=== PATIENT | male | born 1950 | race Caucasian/White ===

== ENCOUNTER 2020-11-27 11:32 | Observation (INO) ==
--- NOTE | 2020-11-27 11:56 | Emergency Department Note ---
Impression & Plan Altered mental status, Confusion, Disorientation ED Provider Note NAME: ROSEMARIE ERICKSON AGE: 70 SEX: M : 1950 ARRIVES VIA: Ambulance INFORMANT: [Patient][ems] ED PROVIDER(S): [Shailesh Seo MD] CHIEF COMPLAINT: Confusion HISTORY OF PRESENT ILLNESS: The patient is a 70-year-old male who was brought to the hospital for altered mental status. He was found slumped over in his car. He was hard to arouse. EMS was able to get him to wake up and brought him to the ED. Blood sugar was in the 200s. The patient is a poor historian. He does not speak [place]ic well and the translation line was used. The patient does not know the year, the month or the day. He is not sure why he is here. He denies any pain. There is no headache. He denies being sick or ill. He denies drug or alcohol use. Given his mental state, no further history obtainable. REVIEW OF SYSTEMS: Unobtainable given his mental state. PMHx/PSHx: See Below SOCIAL HISTORY: See Below. PHYSICAL EXAM: GENERAL: Patient is in no acute distress. HEENT: No acute trauma, normocephalic atraumatic, mucous membranes moist, no nasal congestion, no scleral icterus. Pupils equal and reactive to light. NECK: No stridor, no adenopathy, no meningismus, trachea is midline. LUNGS: Clear to auscultation bilaterally, no wheeze, no rhonchi, breath sounds equal. HEART: Without murmurs gallops or rubs, regular rate and rhythm. ABDOMEN: Soft, nontender, bowel sounds positive, no hernias, no peritonitis. EXTREMITIES: No cyanosis or edema, full range of motion of all the joints without pain or difficulty, no signs for acute trauma. NEUROLOGIC: No speech slur, able to perform simple commands. No one-sided weakness noted. No extremity drift. Confused. SKIN: No rash, no jaundice, no diaphoresis. Groin: No erythema to suggest infection. DIFFERENTIAL DIAGNOSIS: Infection, dehydration, metabolic abnormality, alcohol abuse, drug abuse, liver disease, hypo/hyperglycemia, electrolyte disturbance, anemia, hypoxia, cardiac sources, intracerebral event, toxicologic issues, stroke, TIA, as well as other pathologies. EMERGENCY DEPARTMENT COURSE/PROCEDURES: ECG: Indication was weakness and confusion. The ECG shows a normal sinus rhythm with a rate of 67. There is no ST elevation, no PVCs. The QTc is 403. Continuous Cardiac Monitoring: An order was placed for continuous cardiac monitoring. The monitor shows a rate of 61 with normal sinus rhythm. MEDICAL DECISION MAKING: There is a slight leukopenia. There is a mild anemia. There is a normal platelet count. No significant electrolyte abnormality or kidney failure. Lactic acid level is not elevated making sepsis less likely. No liver enzyme elevation. Ammonia level was not elevated. The patient appeared to be in a euthyroid state. ECG shows a sinus rhythm, no acute ischemia. Cardiac enzyme testing x1 is not consistent with acute cardiac injury. Urinalysis shows some glucose, no infection. Urine tox was negative. Alcohol level was undetectable. Brain CT shows no acute bleed or mass-effect. Chest film shows what appears to be some atelectasis, no CHF. On exam, there were no focal neurologic deficits. The patient was quite disoriented though. The patient was given IV saline, 1 L. The nursing staff was able to contact the patient's . Using the translation line, it appears the patient had left yesterday from [place] to [place]. He apparently was confused at a police station in [place] and given directions to [place]. Somehow, he ended up here in the [facility]. As per his , he has been somewhat forgetful the last few months especially over the last couple of weeks. He has a history of hypertension and hypothyroidism and diabetes. The patient is going to need a hospital stay. At this point, the reason for his altered mental state is unclear. It does appear though that his confusion and disorientation has been escalating for several months. I spoke with case management, the on-call hospitalist was consulted. Past Med/Surg History Medical History Diabetes mellitus Hypertension Social History Smoking Status: Former smoker Feels Safe at Home: Yes Home Meds Home Medications Medication Instructions Recorded Confirmed enalapril maleate 10 mg PO DAILY 11/27/20 11/27/20 levothyroxine 112 mcg PO DAILY 11/27/20 11/27/20 metformin 850 mg PO BID 11/27/20 11/27/20 metoprolol succinate [Toprol XL] 50 mg PO DAILY 11/27/20 11/27/20 Results & Data (ED) Vital Signs Vital Signs - 24 hr 11/27/20 11:36 11/27/20 11:37 11/27/20 11:46 Temperature 36.9 C Temperature Source Oral Pulse Rate 71 71 66 Pulse Rate from SpO2 Sensor 65 Pulse Rhythm Regular Pulse Strength Normal Respiratory Rate 18 26 H 20 Respiratory Effort / Characteristics Non-Labored Respiratory Depth Normal Respiratory Pattern Regular Blood Pressure 127/67 127/67 Blood Pressure Mean 87 87 Blood Pressure Position Sitting Pulse Oximetry 99 99 Oxygen Delivery Method Room Air Sepsis Recent Fever Within 48 Hours No Sepsis New/Unexplained Change in Mental Status No Sepsis Action Taken by Nursing No Action Required 11/27/20 11:50 11/27/20 12:00 11/27/20 12:01 Temperature Temperature Source Pulse Rate 69 64 63 Pulse Rate from SpO2 Sensor 68 64 63 Pulse Rhythm Pulse Strength Respiratory Rate 20 14 16 Respiratory Effort / Characteristics Respiratory Depth Respiratory Pattern Blood Pressure 122/64 Blood Pressure Mean 83 Blood Pressure Position Pulse Oximetry 93 94 93 Oxygen Delivery Method Sepsis Recent Fever Within 48 Hours Sepsis New/Unexplained Change in Mental Status Sepsis Action Taken by Nursing 11/27/20 12:10 11/27/20 12:19 11/27/20 12:20 Temperature Temperature Source Pulse Rate 69 73 59 L Pulse Rate from SpO2 Sensor 69 60 Pulse Rhythm Regular Pulse Strength Respiratory Rate 22 18 17 Respiratory Effort / Characteristics Respiratory Depth Respiratory Pattern Blood Pressure Blood Pressure Mean Blood Pressure Position Pulse Oximetry 95 93 98 Oxygen Delivery Method Room Air Sepsis Recent Fever Within 48 Hours Sepsis New/Unexplained Change in Mental Status Sepsis Action Taken by Nursing 11/27/20 12:30 11/27/20 12:31 Temperature Temperature Source Pulse Rate 63 59 L Pulse Rate from SpO2 Sensor 59 L 57 L Pulse Rhythm Pulse Strength Respiratory Rate 20 16 Respiratory Effort / Characteristics Respiratory Depth Respiratory Pattern Blood Pressure 123/63 Blood Pressure Mean 83 Blood Pressure Position Pulse Oximetry 97 97 Oxygen Delivery Method Sepsis Recent Fever Within 48 Hours Sepsis New/Unexplained Change in Mental Status Sepsis Action Taken by [facility] Medications Current Medication List: was personally reviewed by me Laboratory Data Attestation: I reviewed the patient's lab results. Result diagrams: 11/27/20 12:00 11/27/20 12:00 Lab Results 11/27/20 11/27/20 11/27/20 Range/Units 12:00 12:00 12:00 WBC 4.15 L (4.8-10.8) K/uL RBC 3.99 L (4.7-6.1) M/uL Hgb 12.4 L (14.0-18.0) g/dL Hct 36.3 L (42-52) % MCV 91.0 (80-100) fL MCH 31.1 (25-34) pg MCHC 34.2 (32-36) g/dL RDW Std Deviation 44.0 (36.4-46.3) fL RDW Coeff of Marcella 13.1 (11.5-14.5) % Plt Count 134 (130-400) K/uL MPV 9.1 (7.4-10.4) fL Immature Gran % (Auto) 0.2 % Neut % (Auto) 56.0 % Lymph % (Auto) 26.5 % Trinity % (Auto) 17.1 % Eos % (Auto) 0.0 % Baso % (Auto) 0.2 % Neut # (Auto) 2.32 (1.4-6.5) K/uL Lymph # (Auto) 1.10 L (1.2-3.4) K/uL Trinity # (Auto) 0.71 H (0.11-0.59) K/uL Eos # (Auto) 0.00 (0-0.5) K/uL Baso # (Auto) 0.01 (0-0.2) K/uL Immature Gran # (Auto) 0.01 (0.00-0.02) K/uL Sodium 137 (136-145) mmol/L Potassium 4.3 (3.5-5.1) mmol/L Chloride 104 (98-107) mmol/L Carbon Dioxide 27 (21-32) mmol/L Anion Gap 6.0 (3-11) BUN 13 (7-18) mg/dl Creatinine 0.84 (0.6-1.4) mg/dl Est Cr Clr Drug Dosing 80.3 ml/min Est GFR ( Amer) 103.5 ml/min Est GFR (Non-Af Amer) 89.3 ml/min BUN/Creatinine Ratio 15.8 (10-20) Glucose 193 H (70-99) mg/dl POC Glucose (70-99) mg/dl Lactate (0.4-2.0) mmol/L Calcium 8.2 L (8.5-10.1) mg/dl Magnesium 2.1 (1.8-2.4) mg/dl Total Bilirubin 0.4 (0.2-1) mg/dl AST 27 (15-37) U/L ALT 30 (12-78) U/L Alkaline Phosphatase 58 (45-117) U/L Ammonia 12.0 (11-32) umol/L Troponin I < 0.015 (0-0.045) ng/ml Total Protein 7.3 (6.4-8.2) gm/dl Albumin 3.6 (3.4-5.0) gm/dl Globulin 3.7 (2.5-4.0) gm/dl Albumin/Globulin Ratio 1.0 (0.9-2) TSH 0.742 (0.300-4.500) uIu/ml Urine Color Urine Appearance (Clear) Urine pH (4.5-7.5) Ur Specific [place] (1.000-1.030) Urine Protein (Negative) Urine Glucose (UA) (Negative) Urine Ketones (Negative) Urine Blood (Negative) Urine Nitrite (Negative) Urine Bilirubin (Negative) Urine Urobilinogen (Negative) Ur Leukocyte Esterase (Negative) Urine WBC (Auto) (0-5) /hpf Urine RBC (Auto) (0-4) /hpf U Hyaline Cast (Auto) (0-5) /lpf U Epithel Cells (Auto) (0-5) /lpf Urine Bacteria (Auto) (Negative) Urine Opiates Screen (Neg) Ur Methadone, Qual (Neg) Urine Barbiturates (Neg) Ur Phencyclidine (PCP) (Neg) U Amphetamin/Meth Scrn (Neg) MDMA (Ecstasy) Screen (Neg) U Benzodiazepines Scrn (Neg) Ur Cocaine Metabolite (Neg) U Marijuana (THC) Screen (Neg) Ethyl Alcohol mg/dL (0-3) mg/dl 11/27/20 11/27/20 11/27/20 Range/Units 12:00 12:01 12:01 WBC (4.8-10.8) K/uL RBC (4.7-6.1) M/uL Hgb (14.0-18.0) g/dL Hct (42-52) % MCV (80-100) fL MCH (25-34) pg MCHC (32-36) g/dL RDW Std Deviation (36.4-46.3) fL RDW Coeff of Marcella (11.5-14.5) % Plt Count (130-400) K/uL MPV (7.4-10.4) fL Immature Gran % (Auto) % Neut % (Auto) % Lymph % (Auto) % Trinity % (Auto) % Eos % (Auto) % Baso % (Auto) % Neut # (Auto) (1.4-6.5) K/uL Lymph # (Auto) (1.2-3.4) K/uL Trinity # (Auto) (0.11-0.59) K/uL Eos # (Auto) (0-0.5) K/uL Baso # (Auto) (0-0.2) K/uL Immature Gran # (Auto) (0.00-0.02) K/uL Sodium (136-145) mmol/L Potassium (3.5-5.1) mmol/L Chloride (98-107) mmol/L Carbon Dioxide (21-32) mmol/L Anion Gap (3-11) BUN (7-18) mg/dl Creatinine (0.6-1.4) mg/dl Est Cr Clr Drug Dosing ml/min Est GFR ( Amer) ml/min Est GFR (Non-Af Amer) ml/min BUN/Creatinine Ratio (10-20) Glucose (70-99) mg/dl POC Glucose 195 H (70-99) mg/dl Lactate 1.3 (0.4-2.0) mmol/L Calcium (8.5-10.1) mg/dl Magnesium (1.8-2.4) mg/dl Total Bilirubin (0.2-1) mg/dl AST (15-37) U/L ALT (12-78) U/L Alkaline Phosphatase (45-117) U/L Ammonia (11-32) umol/L Troponin I (0-0.045) ng/ml Total Protein (6.4-8.2) gm/dl Albumin (3.4-5.0) gm/dl Globulin (2.5-4.0) gm/dl Albumin/Globulin Ratio (0.9-2) TSH (0.300-4.500) uIu/ml Urine Color Urine Appearance (Clear) Urine pH (4.5-7.5) Ur Specific [place] (1.000-1.030) Urine Protein (Negative) Urine Glucose (UA) (Negative) Urine Ketones (Negative) Urine Blood (Negative) Urine Nitrite (Negative) Urine Bilirubin (Negative) Urine Urobilinogen (Negative) Ur Leukocyte Esterase (Negative) Urine WBC (Auto) (0-5) /hpf Urine RBC (Auto) (0-4) /hpf U Hyaline Cast (Auto) (0-5) /lpf U Epithel Cells (Auto) (0-5) /lpf Urine Bacteria (Auto) (Negative) Urine Opiates Screen (Neg) Ur Methadone, Qual (Neg) Urine Barbiturates (Neg) Ur Phencyclidine (PCP) (Neg) U Amphetamin/Meth Scrn (Neg) MDMA (Ecstasy) Screen (Neg) U Benzodiazepines Scrn (Neg) Ur Cocaine Metabolite (Neg) U Marijuana (THC) Screen (Neg) Ethyl Alcohol mg/dL < 3.0 (0-3) mg/dl 11/27/20 11/27/20 Range/Units 12:08 12:08 WBC (4.8-10.8) K/uL RBC (4.7-6.1) M/uL Hgb (14.0-18.0) g/dL Hct (42-52) % MCV (80-100) fL MCH (25-34) pg MCHC (32-36) g/dL RDW Std Deviation (36.4-46.3) fL RDW Coeff of Marcella (11.5-14.5) % Plt Count (130-400) K/uL MPV (7.4-10.4) fL Immature Gran % (Auto) % Neut % (Auto) % Lymph % (Auto) % Trinity % (Auto) % Eos % (Auto) % Baso % (Auto) % Neut # (Auto) (1.4-6.5) K/uL Lymph # (Auto) (1.2-3.4) K/uL Trinity # (Auto) (0.11-0.59) K/uL Eos # (Auto) (0-0.5) K/uL Baso # (Auto) (0-0.2) K/uL Immature Gran # (Auto) (0.00-0.02) K/uL Sodium (136-145) mmol/L Potassium (3.5-5.1) mmol/L Chloride (98-107) mmol/L Carbon Dioxide (21-32) mmol/L Anion Gap (3-11) BUN (7-18) mg/dl Creatinine (0.6-1.4) mg/dl Est Cr Clr Drug Dosing ml/min Est GFR ( Amer) ml/min Est GFR (Non-Af Amer) ml/min BUN/Creatinine Ratio (10-20) Glucose (70-99) mg/dl POC Glucose (70-99) mg/dl Lactate (0.4-2.0) mmol/L Calcium (8.5-10.1) mg/dl Magnesium (1.8-2.4) mg/dl Total Bilirubin (0.2-1) mg/dl AST (15-37) U/L ALT (12-78) U/L Alkaline Phosphatase (45-117) U/L Ammonia (11-32) umol/L Troponin I (0-0.045) ng/ml Total Protein (6.4-8.2) gm/dl Albumin (3.4-5.0) gm/dl Globulin (2.5-4.0) gm/dl Albumin/Globulin Ratio (0.9-2) TSH (0.300-4.500) uIu/ml Urine Color Yellow Urine Appearance Clear (Clear) Urine pH 6.0 (4.5-7.5) Ur Specific [place] 1.019 (1.000-1.030) Urine Protein Trace H (Negative) Urine Glucose (UA) 2+ H (Negative) Urine Ketones 1+ H (Negative) Urine Blood Negative (Negative) Urine Nitrite Negative (Negative) Urine Bilirubin Negative (Negative) Urine Urobilinogen Negative (Negative) Ur Leukocyte Esterase Negative (Negative) Urine WBC (Auto) 1-5 (0-5) /hpf Urine RBC (Auto) 0-4 (0-4) /hpf U Hyaline Cast (Auto) 1-5 (0-5) /lpf U Epithel Cells (Auto) 10-20 H (0-5) /lpf Urine Bacteria (Auto) Negative (Negative) Urine Opiates Screen Neg (Neg) Ur Methadone, Qual Neg (Neg) Urine Barbiturates Neg (Neg) Ur Phencyclidine (PCP) Neg (Neg) U Amphetamin/Meth Scrn Neg (Neg) MDMA (Ecstasy) Screen Neg (Neg) U Benzodiazepines Scrn Neg (Neg) Ur Cocaine Metabolite Neg (Neg) U Marijuana (THC) Screen Neg (Neg) Ethyl Alcohol mg/dL (0-3) mg/dl Administered Medications Discontinued Medications Sodium Chloride (Nss 1000ml) 1,000 mls @ 999 mls/hr IV .[id number] Stop: 11/27/20 13:00 Last Admin: 11/27/20 12:20 Dose: 999 mls/hr Documented by: [id number] Imaging Data Radiologist's Impression: Chest X-Ray 11/27/20 11:51 XR chest 1V portable HISTORY: 70 years-old Male weakness . Acute weakness COMPARISON: None TECHNIQUE: Portable AP view of the chest FINDINGS: Cardiac silhouette is upper limits of normal in size. No pneumothorax, pleural effusion or overt pulmonary edema. Ill-defined opacities of the lung bases. Degenerative changes of the shoulders and spine. IMPRESSION: Ill-defined opacities of the lung bases are likely secondary to atelectasis/summation density. A mild pneumonitis is considered less likely. ACT 112: Negative or not required by law. The above report was generated using voice recognition software. It may contain grammatical, syntax or spelling errors. Electronically signed by: Edwin Morrison M.D. 11/27/2020 12:[address] 11/27/20 11:51 CT head/brain wo con CLINICAL HISTORY: 70 years-old Male with confusion. Acutely altered mental status with confusion TECHNIQUE: Multiple axial CT images of the head were obtained without contrast. A dose lowering technique was utilized adhering to the principles of ALARA. CT DOSE: 614.27 mGy.cm COMPARISON: None. FINDINGS: No acute intracranial hemorrhage, midline shift, intracranial mass, hydrocephalus, territorial ischemia or abnormal extra-axial collection. Mildly motion degraded exam. The calvarium is intact. Prior left-sided lens repair. The paranasal sinuses, mastoid air cells, and middle ear cavities are clear. IMPRESSION: No acute intracranial abnormality. ACT 112: Negative or not required by law. The above report was generated using voice recognition software. It may contain grammatical, syntax or spelling errors. Electronically signed by: Edwin Morrison M.D. 11/27/2020 1:15 PM Discharge Plan Visit Data Chief Complaint: Altered Mental Status ED Provider: Shailesh Seo Discharge Problem: Altered mental status, Confusion, Disorientation Patient Disposition: Admitted As Inpatient Condition: Fair Forms [facility] Prescriptions Prescriptions: No Action enalapril maleate 10 mg Tablet 10 mg PO DAILY RF: 0 metoprolol succinate [Toprol XL] 50 mg Tablet Extended Release 24 Hr 50 mg PO DAILY RF: 0 metformin 850 mg Tablet 850 mg PO BID RF: 0 levothyroxine 112 mcg Tablet 112 mcg PO DAILY RF: 0 Referrals Referrals: PCP,NO [Primary Care Provider] - Discharge Problem: Altered mental status Qualifiers: Altered mental status type: disorientation Qualified Code(s): R41.0 - Disorientation, unspecified
[2020-11-27] MEDS ORDERED: SODIUM CHLORIDE 0.9% 1,000 ML IV SCH ×2 (12:00→19:31)
[2020-11-27 12:12] LABS: Basophils # (auto) 0.01 K/uL (0-0.2); Basophils % (auto) 0.2 %; Hematocrit (blood only) 36.3 % (42-52); Hemoglobin 12.4 g/dL (14.0-18.0); Immature Granulocytes # (auto) 0.01 K/uL (0.00-0.02); Immature Granulocytes % (auto) 0.2 %; Lymphocytes % (auto) 26.5 %; Mean Corpuscular Hemoglobin 31.1 pg (25-34); Mean Corpuscular Hgb Conc 34.2 g/dL (32-36); Mean Platelet Volume 9.1 fL (7.4-10.4); Monocytes # (auto) 0.71 K/uL (0.11-0.59); Monocytes % (auto) 17.1 %; Neutrophils # (auto) 2.32 K/uL (1.4-6.5); Platelet Count 134 K/uL (130-400); RDW Coefficient of Variation 13.1 % (11.5-14.5); Red Blood Count 3.99 M/uL (4.7-6.1); White Blood Count 4.15 K/uL (4.8-10.8)
--- NOTE | 2020-11-27 12:24 | XRay Report ---
XR chest 1V portable HISTORY: 70 years-old Male weakness . Acute weakness COMPARISON: None TECHNIQUE: Portable AP view of the chest FINDINGS: Cardiac silhouette is upper limits of normal in size. No pneumothorax, pleural effusion or overt pulm onary edema. Ill-defined opacities of the lung bases. Degenerative changes of the shoulders and spine . IMPRESSION: Ill-defined opacities of the lung bases are likely secondary to atelectasis/summation den sity. A mild pneumonitis is considered less likely. ACT 112: Negative or not required by law. The above report was generated using voice recognition software. It may contain grammatical, syntax o r spelling errors. Electronically signed by: Edwin Morrison M.D. 11/27/2020 12:22 PM
[2020-11-27 12:30] LABS: Alanine Aminotransferase 30 U/L (12-78); Albumin Level 3.6 gm/dl (3.4-5.0); Aspartate Aminotransferase 27 U/L (15-37); BUN Creatinine Ratio 15.8 (10-20); Blood Urea Nitrogen 13 mg/dl (7-18); Calcium 8.2 mg/dl (8.5-10.1); Carbon Dioxide 27 mmol/L (21-32); Chloride 104 mmol/L (98-107); Creatinine Clr Calc Pharmacy 80.3 ml/min; Est GFR (African American) 103.5 ml/min; Est GFR (Non-African American) 89.3 ml/min; Glucose 193 mg/dl (70-99); Magnesium 2.1 mg/dl (1.8-2.4); Potassium 4.3 mmol/L (3.5-5.1); Sodium 137 mmol/L (136-145)
[2020-11-27 12:32] LABS: Appearance Urine Clear (Clear); Bacteria Urine Automated Negative (Negative); Bilirubin Urine Negative (Negative); Blood Urine Negative (Negative); Color Urine Yellow; Glucose Urine UA 2+ (Negative); Ketones Urine 1+ (Negative); Leukocyte Esterase Urine Negative (Negative); Nitrite Urine Negative (Negative); Protein Urine Trace (Negative); RBC Urine Automated 0-4 /hpf (0-4); Specific Gravity Urine 1.019 (1.000-1.030); Urobilinogen Urine Negative (Negative)
[2020-11-27 12:41] LABS: Alkaline Phosphatase 58 U/L (45-117); Bilirubin,Total 0.4 mg/dl (0.2-1); Globulin 3.7 gm/dl (2.5-4.0); Thyroid Stimulating Hormone 0.742 uIu/ml (0.300-4.500); Total Protein 7.3 gm/dl (6.4-8.2); Troponin I < 0.015 ng/ml (0-0.045)
[2020-11-27 12:54] LABS: Amphetamines+Metham, Urine Neg (Neg); Barbiturates, Urine Neg (Neg); Benzodiazepine, Urine Neg (Neg); Cocaine, Urine Neg (Neg); MDMA (Ecstacy), Urine Neg (Neg); Methadone, Urine Neg (Neg); Opiate, Urine Neg (Neg); Phencyclidine, Urine Neg (Neg)
--- NOTE | 2020-11-27 13:16 | CT Scan Report ---
CT head/brain wo con CLINICAL HISTORY: 70 years-old Male with confusion. Acutely altered mental status with confusion TECHNIQUE: Multiple axial CT images of the head were obtained without contrast. A dose lowering tech nique was utilized adhering to the principles of ALARA. CT DOSE: 614.27 mGy.cm COMPARISON: None. FINDINGS: No acute intracranial hemorrhage, midline shift, intracranial mass, hydrocephalus, territorial ischem ia or abnormal extra-axial collection. Mildly motion degraded exam. The calvarium is intact. Prior left-sided lens repair. The paranasal sinuses, mastoid air cells, and middle ear cavities are clear. IMPRESSION: No acute intracranial abnormality. ACT 112: Negative or not required by law. The above report was generated using voice recognition software. It may contain grammatical, syntax o r spelling errors. Electronically signed by: Edwin Morrison M.D. 11/27/2020 1:15 PM
--- NOTE | 2020-11-27 15:14 | History & Physical Report ---
Date of Service November 27, 2020 Assessment & Plan (1) Altered mental status: Patient presents with encephalopathy of undetermined origin. Currently does not appear to have any infectious etiologies we can tell. Distal urine tox screen for typical drugs are negative. Patient does have mild elevation of his blood glucose but no evidence of acidemia. He denies any focal complaints or problems. Patient will be kept for safety he'll be hydrated clear family will arrive to further clear up this problem His of his risk factors of diabetes hypertension and his age patient will proceed with an MRI scan of his head to look for ischemic changes. He started on aspirin 81 mg at this time lipid panel be gained in the morning Will be given 500 thiamine in ER and checked started on 100 mg thiamine daily thiamine level be sent, family gave ER nursing history of decline over last few weeks Incidental Covid test + in er ? covid encephalopathy (2) COVID-19: Patient is found to have incidental COVID-19 positive testing in the emergency department. He is not hypoxic he does not have any chest infiltrates he denies having any diarrhea or changes in taste or smell. He is on Covid airborne isolation is at this point in time we will continue to follow his vital signs (3) Hypertension: This comes with a history from his currently is normotensive Reportedly medications include enalapril and metoprolol these will be continued (4) Hypothyroidism: Patient will continue on Synthroid on 112 mcg, TSH was checked and found to be within normal limits (5) Diabetes mellitus: Patient reported his diabetes he is on Metformin this will be held sliding scale insulin will be employed A1c will be checked in the morning is on a carbohydrate conservative diet (6) DVT prophylaxis: Lovenox abuse for DVT prevention History of Present Illness Primary Care Provider: NO PCP 70-year-old Turkish-speaking male who arrives to us in an altered state. According to the emergency room doctor who spoke to the via the manager database administration this patient went from [facility] to [place] to visit family and reportedly did arrive in [place] to visit family on 25 November. Apparently on 26 November today the patient's family received a phone call from the police station in [place] that the patient was trying to get directions to return home to [place]. Reportedly with directions were rendered and the patient was sent on his way. Patient was then found in an altered state [facility] was transported to the hospital by EMS. His pockets contained a pill bottle which looks to contain brown sugar and patient corroborates this is brown sugar there is also 1 packet of Splenda in it. The patient appears slightly sedate and bewildered he can answer questions through the manager database administration he denies drug and alcohol use. Cannot corroborate any medication use at this time and reportedly after the physician was done speaking to the patient the nurse contacted the and reportedly the family is trying to coordinate a way to travel to [facility] to eventually extricate this patient back to [place] Patient's examination is unrevealing does have smaller pupils than I would expect but they do react is no signs of needle tracks is closer slightly dirty but it is undetermined if that was from transporting him in his physical examination is unrevealing. CT scan of the head is unremarkable chest x-ray has some nondescript changes at the bases which could be atelectasis he has no pneumonia symptoms at this time EKG is normal sinus rhythm no acute ST or T wave changes, urine tox screen is negative, urinalysis is with protein glucose and ketones but negative nitrates leukocyte esterase or bacteria. Glucose is slightly elevated at 193 This point time the patient is unfit to be released under his own accord kept in our facility additional monitoring will be undertaken hopefully his family will arrive Home Medications Medication Instructions Recorded Confirmed Type enalapril maleate 10 mg PO DAILY 11/27/20 11/27/20 History levothyroxine 112 mcg PO DAILY 11/27/20 11/27/20 History metformin 850 mg PO BID 11/27/20 11/27/20 History metoprolol succinate [Toprol XL] 50 mg PO DAILY 11/27/20 11/27/20 History Past Med/Surg History Medical History (Updated 11/27/20 @ 16:10 by Kishan King MD) Diabetes mellitus Hypertension Social History Smoking Status: Former smoker Feels Safe at Home: Yes Review of Systems Review of Systems: This is obtained through manager database administration service mild distress and fatigue no headache, blurry or double vision no speech or swallowing issues no chest pain, pressure or palpitations no shortness of breath, cough or wheezes no abdominal pain, nausea or vomiting, diarrhea or constipation no dysuria, hematuria or frequency no focal joint pain or swelling no back pain, CVA tenderness or radicular pain no bruising, bleeding or rashes no focal signs of weakness or numbness no complaints of anxiety or depression.. Physical Exam Physical Exam: The patient appeared well nourished and normally developed. Vital signs as documented. Head exam is normocephalic atraumatic Oropharynx is clear without erythema Neck is without JVD, thyromegaly, or carotid bruits. Lungs are clear to auscultation, no focal loss of breath sounds Cardiac exam, Rhythm is regular.. No murmurs, rubs or gallops. Abdominal exam reveals normal bowel sounds, soft non tender, no masses Extremities are nonedematous and both pedal pulses are present Neurologic exam is alert and seems sleepy but answers questions Skin is without bruises or rashes Results & Data Results & Data ([facility]) Vital Signs (Past 12 Hours) Vital Signs Temp Pulse Resp BP Pulse Ox 11/27/20 12:31 59 L 16 97 11/27/20 12:30 63 20 123/63 97 11/27/20 12:20 59 L 17 98 11/27/20 12:19 73 18 93 11/27/20 12:10 69 22 95 11/27/20 12:01 63 16 93 11/27/20 12:00 64 14 122/64 94 11/27/20 11:50 69 20 93 11/27/20 11:46 66 20 99 11/27/20 11:37 98.4 F 71 26 H 127/67 99 11/27/20 11:36 71 18 127/67 Chest X-Ray 11/27/20 11:51 XR chest 1V portable HISTORY: 70 years-old Male weakness . Acute weakness COMPARISON: None TECHNIQUE: Portable AP view of the chest FINDINGS: Cardiac silhouette is upper limits of normal in size. No pneumothorax, pleural effusion or overt pulmonary edema. Ill-defined opacities of the lung bases. Degenerative changes of the shoulders and spine. IMPRESSION: Ill-defined opacities of the lung bases are likely secondary to atelectasis/summation density. A mild pneumonitis is considered less likely. ACT 112: Negative or not required by law. The above report was generated using voice recognition software. It may contain grammatical, syntax or spelling errors. Electronically signed by: Edwin Morrison M.D. 11/27/2020 12:[address] 11/27/20 11:51 CT head/brain wo con CLINICAL HISTORY: 70 years-old Male with confusion. Acutely altered mental status with confusion TECHNIQUE: Multiple axial CT images of the head were obtained without contrast. A dose lowering technique was utilized adhering to the principles of ALARA. CT DOSE: 614.27 mGy.cm COMPARISON: None. FINDINGS: No acute intracranial hemorrhage, midline shift, intracranial mass, hydrocephalus, territorial ischemia or abnormal extra-axial collection. Mildly motion degraded exam. The calvarium is intact. Prior left-sided lens repair. The paranasal sinuses, mastoid air cells, and middle ear cavities are clear. IMPRESSION: No acute intracranial abnormality. ACT 112: Negative or not required by law. The above report was generated using voice recognition software. It may contain grammatical, syntax or spelling errors. Electronically signed by: Edwin Morrison M.D. 11/27/2020 1:15 PM EKG shows normal sinus rhythm without ST or T wave changes PG Care Time/CCT Total # of Minutes Spent Total Time Spent with Patient: Total time spent is greater than 50% in coordination of care (as documented) at patient's floor/unit and/or counseling patient: Coding Level of Care Code 92169 Initial Inpt Care Lvl 3 Diagnoses Altered mental status R41.0 Altered mental status type: disorientation COVID-19 U07.1 Hypertension I10 Hypothyroidism E03.9 Diabetes mellitus E11.9 DVT prophylaxis Z29.9 (1) Altered mental status Altered mental status type: disorientation Qualified Code(s): R41.0 - Disorientation, unspecified
[2020-11-27] MEDS ORDERED: GLUCOSE 10 TAB/TUBE PO PRN (19:31)
[2020-11-27] MEDS ORDERED: CARBOHYDRATES FOR HYPOGLYCEMIA PO PRN (19:31)
[2020-11-27] MEDS ORDERED: GLUCOSE 40% GEL 15 GM TUBE PO PRN (19:31)
[2020-11-27] MEDS ORDERED: DEXTROSE 50% 50 ML SYRINGE IV PRN (19:31)
[2020-11-27] MEDS ORDERED: POLYETHYLENE (MIRALAX) 17 GM PACK PO PRN (19:31)
[2020-11-27] MEDS ORDERED: LORazepam 0.5 MG/1 ML VIAL IV PRN (19:31)
[2020-11-27] MEDS ORDERED: ALUMINUM/MAGNESIUM SUSP 30 ML UDC PO PRN (19:31)
[2020-11-27] MEDS ORDERED: ONDANSETRON INJ 2 MG/ML 2 ML VIAL IV PRN (19:31)
[2020-11-27] MEDS ORDERED: GLUCAGON FOR INJ 1 MG VIAL SQ PRN (19:31)
[2020-11-27] MEDS ORDERED: ACETAMINOPHEN 325 MG TAB PO PRN (19:31)
[2020-11-27] MEDS ORDERED: THIAMINE HCL 500 MG in SODIUM CHLORIDE 0.9% 50 ML IV ONE (20:00)
[2020-11-27 20:16] LABS: Chol HDL Ratio 4; Cholesterol 142 mg/dl (0-200); HDL Cholesterol 38 mg/dl; LDL Cholesterol Calculated 87 mg/dl; Triglycerides 85 mg/dl (0-150); VLDL Cholesterol 17 mg/dl
[2020-11-27] MEDS ORDERED: ENOXAPARIN INJ 40 MG/0.4 ML SYR SQ SCH (21:00)
[2020-11-27] MEDS: INSULIN ASPART 100 UNITS/ML 3 ML PEN SC SCH (22:40)
--- NOTE | 2020-11-28 06:20 | Electrocardiogram Report ---
Test Reason : Blood Pressure : / mmHG Vent. Rate : 067 BPM Atrial Rate : 067 BPM P-R Int : 142 ms QRS Dur : 082 ms QT Int : 382 ms P-R-T Axes : 055 -03 033 degrees QTc Int : 403 ms Normal sinus rhythm Normal ECG No previous ECGs available Confirmed by Mauri Mcdonough ([id number]) on 11/28/2020 6:20:31 AM Referred By: REFERRED SELF Confirmed By:Mauri Mcdonough
[2020-11-28] MEDS ORDERED: LEVOTHYROXINE SODIUM 112 MCG TABLET PO SCH (06:30)
[2020-11-28 06:47] LABS: Calcium 7.6 mg/dl (8.5-10.1); Creatinine Clr Calc Pharmacy 90.6 ml/min; Est GFR (Non-African American) 95.7 ml/min; Potassium 4.1 mmol/L (3.5-5.1)
--- NOTE | 2020-11-28 07:50 | Hospitalist Progress Note ---
Date of Service November 28, 2020 Assessment & Plan (1) Altered mental status: Patient presents with encephalopathy of undetermined origin. He has + covid testing but not pneumonia or colitis and does not appear to have any other infectious etiologies we can tell. typical urine tox screen for typical drugs are negative. Patient is diabetic and does have mild elevation of his blood glucose but no evidence of acidemia. He denies any focal complaints or problems. Patient will be kept for safety until his family will arrive to return him to his home town and arrange medical follow up Wasbe given 500 thiamine in ER and checked started on 100 mg thiamine daily there does not seem to be a discernable affect on his performance Incidental Covid test + in er ? covid encephalopathy His family, Rima, speaks Telugu and she feels that her father was just overly tired and that typically he speaks low slow and mumbles, she feels that she has spoken to him and he is near his baseline (2) COVID-19: Patient is found to have incidental COVID-19 positive testing in the emergency department. He is not hypoxic he does not have any chest infiltrates he denies having any diarrhea or changes in taste or smell. He is on Covid airborne isolation is at this point in time we will continue to follow home isolation after his stay (3) Hypertension: This comes with a history from his currently is normotensive Reportedly medications include enalapril and metoprolol (4) Hypothyroidism: Patient will continue on Synthroid on 112 mcg, TSH was checked and found to be within normal limits (5) Diabetes mellitus: Patient reported his diabetes he is on Metformin this will be resumed on discharge (6) DVT prophylaxis: Lovenox was used for DVT prevention Admission and Anticipated Discharge Date Admission Date: November 27, 2020 Subjective This pt appears more awake and alert today, he denies issues and does speak some Telugu states he is hungry has no pain and feels good Review of Systems Review of Systems: This is obtained through fitness professional service mild distress and fatigue no headache, blurry or double vision no speech or swallowing issues no chest pain, pressure or palpitations no shortness of breath, cough or wheezes no abdominal pain, nausea or vomiting, diarrhea or constipation no dysuria, hematuria or frequency no focal joint pain or swelling no back pain, CVA tenderness or radicular pain no bruising, bleeding or rashes no focal signs of weakness or numbness no complaints of anxiety or depression.. Physical Exam Physical Exam: The patient appeared well nourished and normally developed. Vital signs as documented. Head exam is normocephalic atraumatic Oropharynx is clear without erythema Neck is without JVD, thyromegaly, or carotid bruits. Lungs are clear to auscultation, no focal loss of breath sounds Cardiac exam, Rhythm is regular.. No murmurs, rubs or gallops. Abdominal exam reveals normal bowel sounds, soft non tender, no masses Extremities are nonedematous and both pedal pulses are present Neurologic exam is alert and seems sleepy but answers questions Skin is without bruises or rashes Results & Data Results & Data ([facility]) Vital Signs (Past 12 Hours) Vital Signs Temp Pulse Pulse Resp BP Pulse Ox 11/28/20 07:37 99.9 F H 70 16 125/62 100 11/28/20 04:09 99.3 F 63 20 123/66 99 11/28/20 00:10 98.4 F 62 18 125/69 100 11/27/20 22:40 73 PG Care Time/CCT Total # of Minutes Spent Total Time Spent with Patient: Total time spent is greater than 50% in coordination of care (as documented) at patient's floor/unit and/or counseling patient: Coding Level of Care Code 11988 Subseq Hosp Care Lvl 3 Diagnoses Altered mental status R41.0 Altered mental status type: disorientation COVID-19 U07.1 Hypertension I10 Hypothyroidism E03.9 Diabetes mellitus E11.9 DVT prophylaxis Z29.9 (1) Altered mental status Altered mental status type: disorientation Qualified Code(s): R41.0 - Disorientation, unspecified
[2020-11-28] MEDS: INSULIN ASPART 100 UNITS/ML 3 ML PEN SC SCH ×3 (08:10→16:45)
[2020-11-28] MEDS ORDERED: ENALAPRIL MALEATE 10 MG TAB PO SCH (09:00)
[2020-11-28] MEDS ORDERED: THIAMINE HCL 100 MG TAB PO SCH (09:00)
[2020-11-28] MEDS ORDERED: ASPIRIN 81 MG ECTAB PO SCH (09:00)
[2020-11-28] MEDS ORDERED: METOPROLOL SUCC 50MG EXT REL TAB PO SCH (09:00)
--- NOTE | 2020-11-28 14:05 | Discharge Summary ---
Date of Service November 28, 2020 Admission HPI Per Admitting Provider 70-year-old Fijian-speaking male who arrives to us in an altered state. According to the emergency room doctor who spoke to the via the flask maker this patient went from [facility] to [place] to visit family and reportedly did arrive in [place] to visit family on 25 November. Apparently on 26 November today the patient's family received a phone call from the police station in [place] that the patient was trying to get directions to return home to [place]. Reportedly with directions were rendered and the patient was sent on his way. Patient was then found in an altered state downtown [facility] transported to the hospital by EMS. His pockets contained a pill bottle which looks to contain brown sugar and patient corroborates this is brown sugar there is also 1 packet of Splenda in it. The patient appears slightly sedate and bewildered he can answer questions through the flask maker he denies drug and alcohol use. Cannot corroborate any medication use at this time and reportedly after the physician was done speaking to the patient the nurse contacted the and reportedly the family is trying to coordinate a way to travel to [facility] to eventually extricate this patient back to [place] Patient's examination is unrevealing does have smaller pupils than I would expect but they do react is no signs of needle tracks is closer slightly dirty but it is undetermined if that was from transporting him in his physical examination is unrevealing. CT scan of the head is unremarkable chest x-ray has some nondescript changes at the bases which could be atelectasis he has no pneumonia symptoms at this time EKG is normal sinus rhythm no acute ST or T wave changes, urine tox screen is negative, urinalysis is with protein glucose and ketones but negative nitrates leukocyte esterase or bacteria. Glucose is slightly elevated at 193 This point time the patient is unfit to be released under his own accord kept in our facility additional monitoring will be undertaken hopefully his family will arrive Principal Diagnosis covid encephalopathy Discharge Exam Constitutional well developed and average body habitus Eyes no conjunctival abnormality and no scleral abnormality Neck normal visual inspection and trachea midline Respiratory normal respiratory effort; no respiratory distress Auscultation: lungs clear to auscultation bilaterally Cardiovascular RRR, no murmur, no edema Gastrointestinal (Abdomen) normal bowel sounds, soft, nontender, no hepatosplenomegaly Musculoskeletal no cyanosis or clubbing, extremities motor strength 11/10 Discharge Data Consultations 11/27/20 14:15 ED Decision to Admit Stat Ordered Studies 11/27/20 11:51 CT head/brain wo con Stat 11/28/20 05:21 MR brain wo con Routine Hospital Course (1) Altered mental status: Patient presents with encephalopathy of undetermined origin. He has + covid testing but not pneumonia or colitis and does not appear to have any other infectious etiologies we can tell. typical urine tox screen for typical drugs are negative. Patient is diabetic and does have mild elevation of his blood glucose but no evidence of acidemia. He denies any focal complaints or problems. Patient will be kept for safety until his family will arrive to return him to his home town and arrange medical follow up Wasbe given 500 thiamine in ER and checked started on 100 mg thiamine daily there does not seem to be a discernable affect on his performance Incidental Covid test + in er ? covid encephalopathy His family, Rima, speaks Swedish and she feels that her father was just overly tired and that typically he speaks low slow and mumbles, she feels that she has spoken to him and he is near his baseline (2) COVID-19: Patient is found to have incidental COVID-19 positive testing in the emergency department. He is not hypoxic he does not have any chest infiltrates he denies having any diarrhea or changes in taste or smell. He is on Covid airborne isolation is at this point in time we will continue to follow home isolation after his stay (3) Hypertension: This comes with a history from his currently is normotensive Reportedly medications include enalapril and metoprolol (4) Hypothyroidism: Patient will continue on Synthroid on 112 mcg, TSH was checked and found to be within normal limits (5) Diabetes mellitus: Patient reported his diabetes he is on Metformin this will be resumed on discharge (6) DVT prophylaxis: Lovenox was used for DVT prevention Total Time Total Time Spent Total Time Spent (In Minutes): greater than 30 minutes were required to prepare this discharge Discharge Plan Discharge Items Patient Disposition: Home - Self-Care Reason For Visit: encepalopathy Discharge Diagnosis: confusion Covid 19 infection Condition on Discharge: Fair Activity: Per Instructions section Non-emergency contact: Primary Care Provider Call non-emergency contact if: your symptoms worsen and your temperature is above 101 Follow-up/Referrals: PCP,NO [Primary Care Provider] - Diet: Carb Consistent or DM2 Addtl Attending Provider Instructions: Home Isolation COVID-19 Instructions The following information about Home Isolation is from the CDC Website: https://www.cdc.gov/coronavirus/2019-ncov/hcp/nmvgypke-pkiuncr-wwzdxl.html Stay home except to get medical care People who are mildly ill with COVID-19 are able to isolate at home during their illness. You should restrict activities outside your home, except for getting medical care. Do not go to work, school, or public areas. Avoid using public transportation, ride-sharing, or taxis. Separate yourself from other people and animals in your home People: As much as possible, you should stay in a specific room and away from other people in your home. Also, you should use a separate bathroom, if available. Animals: You should restrict contact with pets and other animals while you are sick with COVID-19, just like you would around other people. Although there have not been reports of pets or other animals becoming sick with COVID-19, it is still recommended that people sick with COVID-19 limit contact with animals until more information is known about the virus. When possible, have another member of your household care for your animals while you are sick. If you are sick with COVID-19, avoid contact with your pet, including petting, snuggling, being kissed or licked, and sharing food. If you must care for your pet or be around animals while you are sick, wash your hands before and after you interact with pets and wear a face mask. Call ahead before visiting your doctor If you have a medical appointment, call the healthcare provider and tell them that you have or may have COVID-19. This will help the healthcare providers office take steps to keep other people from getting infected or exposed. Wear a face mask You should wear a face mask when you are around other people (e.g., sharing a room or vehicle) or pets and before you enter a healthcare providers office. If you are not able to wear a face mask (for example, because it causes trouble breathing), then people who live with you should not stay in the same room with you, or they should wear a face mask if they enter your room. Cover your coughs and sneezes Cover your mouth and nose with a tissue when you cough or sneeze. Throw used tissues in a lined trash can. Immediately wash your hands with soap and water for at least 20 seconds or, if soap and water are not available, clean your hands with an alcohol-based hand car rider that contains at least 60% alcohol. Clean your hands often Wash your hands often with soap and water for at least 20 seconds, especially after blowing your nose, coughing, or sneezing; going to the bathroom; and before eating or preparing food. If soap and water are not readily available, use an alcohol-based hand car rider with at least 60% alcohol, covering all surfaces of your hands and rubbing them together until they feel dry. Soap and water are the best option if hands are visibly dirty. Avoid touching your eyes, nose, and mouth with unwashed hands. Avoid sharing personal household items You should not share dishes, drinking glasses, cups, eating utensils, towels, or bedding with other people or pets in your home. After using these items, they should be washed thoroughly with soap and water. Clean all high-touch surfaces everyday High touch surfaces include counters, tabletops, doorknobs, bathroom fixtures, toilets, phones, keyboards, tablets, and bedside tables. Also, clean any surfaces that may have blood, stool, or body fluids on them. Use a household cleaning spray or wipe, according to the label instructions. Labels contain instructions for safe and effective use of the cleaning product including precautions you should take when applying the product, such as wearing gloves and making sure you have good ventilation during use of the product. Monitor your symptoms Seek prompt medical attention if your illness is worsening (e.g., difficulty breathing).Beforeseeking care, call your healthcare provider and tell them that you have, or are being evaluated for, COVID-19. Put on a face mask before you enter the facility. These steps will help the healthcare providers office to keep other people in the office or waiting room from getting infected or exposed. Ask your healthcare provider to call the local or [facility] health department. Persons who are placed under active monitoring or facilitated self- monitoring should follow instructions provided by their local health department or occupational health professionals, as appropriate. When working with your local health department check their available hours. If you have a medical emergency and need to call 911, notify the dispatch personnel that you have, or are being evaluated for COVID-19. If possible, put on a face mask before emergency medical services arrive. Discontinuing home isolation Patients with confirmed COVID-19 should remain under home isolation precautions until the risk of secondary transmission to others is thought to be low. The decision to discontinue home isolation precautions should be made on a [id number] basis, in consultation with healthcare providers and state and local health departments. Currently this will be day 11 after your diagnosis. Pending Studies at Discharge: Yes Studies:: some of your blood will continue to be analyzed and if abnormal results you will be called Stand-Alone Forms: My [facility], Smoking Cessation Medications and DC Order Prescriptions: Continued enalapril maleate 10 mg Tablet 10 mg PO DAILY RF: 0 metoprolol succinate [Toprol XL] 50 mg Tablet Extended Release 24 Hr 50 mg PO DAILY RF: 0 metformin 850 mg Tablet 850 mg PO BID RF: 0 levothyroxine 112 mcg Tablet 112 mcg PO DAILY RF: 0 Discharge Orders: Discharge Order (Routine); Ordered 11/28/20 Ordered By: Kishan King Admission Data Admit Date/Time: 11/27/20 15:18 Attending Provider: Kishan King Admit Provider: Kishan King Primary Care Provider: PCP,NO Other Providers: Kishan King Coding Level of Care Code D/C Day Management >30 mins Diagnoses Altered mental status R41.0 Altered mental status type: disorientation COVID-19 U07.1 Hypertension I10 Hypothyroidism E03.9 Diabetes mellitus E11.9 DVT prophylaxis Z29.9
[2020-11-28] MEDS ORDERED: MELATONIN 3 MG TAB PO ONE (21:00)
[2020-11-29 07:32] LABS: Estimated Average Glucose 229 mg/dl; Hemoglobin A1C 9.6 % (4.5-5.6)
== END 2020-11-28 19:25 | disposition home or self-care (01) ==
LOC: ED 11:32 → 2E 11:32